=== PATIENT | male | born 1965 | race Caucasian/White ===

== ENCOUNTER 2018-02-09 00:10 | Emergency (ER) | payer MEDICAID ==
[~2018-02-09] VITALS: Ht 162.6 cm; Wt 56.8 kg
[2018-02-09 00:10] VITALS: BP 146/89
[2018-02-09] MEDS ORDERED: LIDOcaine 1% (10mg/ml)w/preservative injection 20ml MDV IJ ONE (00:20)
[2018-02-09] MEDS ORDERED: TETanus/Pertussis (Acell)/Diphther VAC/PF (Tdap-Adult) 0.5ml syringe IMVAC ONE (00:20)
[2018-02-09] MEDS ORDERED: LIDOcaine 1%/PF 5ML 10 MG/ML VIAL IJ ONE (00:35)
[2018-02-09] MEDS ORDERED: bacitracin 15gm ointment TP ONE (02:05)
[2018-02-09] MEDS ORDERED: CEPH-572 PO (02:14)
== END 2018-02-09 02:22 | disposition home or self-care (01) ==
LOC: ER 00:11
DX: S71.111A Laceration without foreign body, right thigh, initial encounter (principal); S71.151A Open bite, right thigh, initial encounter; F10.129 Alcohol abuse with intoxication, unspecified; F12.90 Cannabis use, unspecified, uncomplicated; Z72.0 Tobacco use; W54.0XXA Bitten by dog, initial encounter; Y93.89 Activity, other specified; Y92.89 Other specified places as the place of occurrence of the external cause; Y99.8 Other external cause status; Y90.9 Presence of alcohol in blood, level not specified
CPT/HCPCS: 12032; 90471; 90715; 99284; J2001

== ENCOUNTER 2018-02-11 15:31 | Emergency (ER) | payer MEDICAID ==
[~2018-02-11] VITALS: Ht 165.1 cm; Wt 56.8 kg
[~2018-02-11 15:31] MED LIST: CEPH-572 PO
[2018-02-11 15:43] VITALS: BP 152/80
== END 2018-02-11 16:27 | disposition home or self-care (01) ==
LOC: ER 15:31
DX: S71.111D Laceration without foreign body, right thigh, subsequent encounter (principal); S71.151D Open bite, right thigh, subsequent encounter; D17.0 Benign lipomatous neoplasm of skin and subcutaneous tissue of head, face and neck; F12.90 Cannabis use, unspecified, uncomplicated; W54.0XXD Bitten by dog, subsequent encounter
CPT/HCPCS: 99281; 99283

== ENCOUNTER 2018-03-30 12:42 | Emergency (ER) | payer MEDICAID ==
[~2018-03-30] VITALS: Ht 165.1 cm; Wt 41.0 kg
[2018-03-30 12:52] VITALS: BP 138/80
[2018-03-30] MEDS ORDERED: TRAM50TA2 PO (14:10)
[2018-03-30] MEDS ORDERED: SULF1TAB49 PO (14:10)
[2018-03-30] MEDS ORDERED: CEPH250T PO (14:10)
== END 2018-03-30 14:29 | disposition home or self-care (01) ==
LOC: ER 12:42
DX: S71.111D Laceration without foreign body, right thigh, subsequent encounter (principal); S71.151D Open bite, right thigh, subsequent encounter; F12.90 Cannabis use, unspecified, uncomplicated; W54.0XXD Bitten by dog, subsequent encounter
CPT/HCPCS: 87070; 87077; 87186; 99283

== ENCOUNTER 2018-04-10 13:47 | Emergency (ER) | payer MEDICAID ==
[~2018-04-10] VITALS: Ht 315 cm; Wt 56.8 kg
[~2018-04-10 13:47] MED LIST changes: -CEPH-572 PO; +CEPH250T PO; +SULF1TAB49 PO; +TRAM50TA2 PO
[2018-04-10] MEDS ORDERED: FLUO20CA39 PO (14:30)
[2018-04-10] MEDS ORDERED: BUSP10TA11 PO (14:34)
[2018-04-10] MEDS ORDERED: LURA20TA PO (14:37)
[2018-04-10 15:41] LABS: BASOPHILS # (AUTO) 0.1 X10'3 (0-0.2); BASOPHILS % (AUTO) 0.6 % (0-1); EOSINOPHILS % (AUTO) 0.4 % (0-6); HEMATOCRIT 39.8 % (42.0-52.0); HEMOGLOBIN 13.4 g/dl (14.0-17.9); LYMPHOCYTES # (AUTO) 1.1 X10'3 (1.1-4.8); LYMPHOCYTES % (AUTO) 11.7 % (21-51); MEAN CORPUSCULAR HEMOGLOBIN 34.4 PG (27.0-31.0); MEAN CORPUSCULAR HGB CONC 33.7 % (33.0-36.5); MEAN CORPUSCULAR VOLUME 102.3 FL (78-98); MEAN PLATELET VOLUME 6.1 FL (7.4-10.4); MONOCYTES # (AUTO) 0.4 X10'3 (0-0.9); MONOCYTES % (AUTO) 4.4 % (2-12); NEUTROPHILS # (AUTO) 7.8 X10'3 (1.8-7.7); NEUTROPHILS % (AUTO) 82.9 % (42-75); PLATELET COUNT 413 X10'3 (140-440); RED BLOOD COUNT 3.89 X10'6 (4.70-6.10); RED CELL DISTRIBUTION WIDTH 14.2 % (11.5-14.5); WHITE BLOOD COUNT 9.4 X10'3 (4.5-11.0)
[2018-04-10 16:05] LABS: ALANINE AMINOTRANSFERASE 58 U/L (12-78); ALBUMIN 3.9 G/DL (3.4-5.0); ALBUMIN/GLOBULIN RATIO 1.2 (1.1-1.5); ALKALINE PHOSPHATASE 62 IU/L (46-116); ANION GAP 13 (8-16); ASPARTATE AMINO TRANSFERASE 76 U/L (10-37); BILIRUBIN,TOTAL 1.1 MG/DL (0.1-1.0); BLOOD UREA NITROGEN 12 MG/DL (7-18); CALCIUM 9.3 MG/DL (8.5-10.1); CHLORIDE 96 MMOL/L (99-107); CREATININE 0.75 MG/DL (0.60-1.10); ETHANOL < 0.010 GM/DL (0.0-0.010); GLUCOSE 109 MG/DL (70-104); POTASSIUM 3.8 MMOL/L (3.5-5.1); SODIUM 135 MMOL/L (135-145); TOTAL CARBON DIOXIDE 25.6 MMOL/L (24-32); TOTAL PROTEIN 7.2 G/DL (6.4-8.2); eGFR > 90 ML/MIN
[2018-04-10 16:37] LABS: CLARITY,URINE CLEAR (Clear); COLOR,URINE YELLOW (Yellow); GLUCOSE, URINE NEGATIVE (Neg); KETONES,URINE 15 mg/dl (Neg); LEUKOCYTE ESTERASE ,URINE NEGATIVE (Neg); NITRITES, URINE NEGATIVE (Neg); OCCULT BLOOD,URINE NEGATIVE (Neg); PROTEIN,URINE NEGATIVE (Neg)
[2018-04-10 16:40] LABS: UA COLLECTION TYPE CLN CATCH MIDSTREAM
[2018-04-10 16:52] LABS: URINE AMPHETAMINE SCREEN POSITIVE (Neg); URINE BARBITUATE SCREEN NEGATIVE (Neg); URINE BENZODIAZEPINES SCREEN NEGATIVE (Neg); URINE CANNABINOID SCREEN POSITIVE (Neg); URINE COCAINE SCREEN NEGATIVE (Neg); URINE METHADONE SCREEN NEGATIVE (Neg); URINE OPIATE SCREEN NEGATIVE (Neg); URINE PHENCYCLIDINE SCREEN NEGATIVE (Neg)
[2018-04-10] MEDS: busPIRone 15mg tablet PO SCH (20:01)
[2018-04-11] MEDS: busPIRone 15mg tablet PO SCH ×2 (08:39→19:55)
[2018-04-11] MEDS: lurasidone 20mg tablet PO SCH (08:39)
[2018-04-11] MEDS: FLUoxetine 20mg capsule PO SCH (08:39)
[2018-04-11] MEDS ORDERED: diphenhydrAMINE 25mg capsule PO ONE (19:05)
[2018-04-12] MEDS: busPIRone 15mg tablet PO SCH (08:23)
[2018-04-12] MEDS: FLUoxetine 20mg capsule PO SCH (08:23)
[2018-04-12] MEDS: lurasidone 20mg tablet PO SCH (08:23)
[2018-04-12] MEDS: busPIRone 5mg tablet PO SCH (20:34)
[2018-04-12] MEDS ORDERED: diphenhydrAMINE 25mg capsule PO ONE (21:00)
[2018-04-12] MEDS ORDERED: diphenhydrAMINE 25mg capsule PO PRN (23:50)
[2018-04-13] MEDS: FLUoxetine 20mg capsule PO SCH (08:07)
[2018-04-13] MEDS: lurasidone 20mg tablet PO SCH (08:07)
[2018-04-13] MEDS: busPIRone 5mg tablet PO SCH (08:07)
[2018-04-13 15:35] VITALS: BP 156/94
== END 2018-04-13 15:46 ==
LOC: ER 13:48
DX: F32.9 Major depressive disorder, single episode, unspecified (principal); F79 Unspecified intellectual disabilities; R11.2 Nausea with vomiting, unspecified; E63.9 Nutritional deficiency, unspecified; F41.9 Anxiety disorder, unspecified; F12.90 Cannabis use, unspecified, uncomplicated; Z79.899 Other long term (current) drug therapy; Z59.0 Homelessness; Z56.0 Unemployment, unspecified
CPT/HCPCS: 36415; 80053; 80305; 80320; 81003; 84443; 85025; 99285; Q0163

== ENCOUNTER → 2018-04-29 | Emergency (ER) | payer MEDICAID ==
[~2018-04-29] VITALS: Ht 162.6 cm; Wt 54.5 kg
[~2018-04-29] MED LIST changes: +BUSP10TA11 PO; +FLUO20CA39 PO; +LURA20TA PO
[2018-04-29 20:18] VITALS: BP 97/73
== END | disposition home or self-care (01) ==
LOC: ER 19:32
DX: F99 Mental disorder, not otherwise specified (principal); I10 Essential (primary) hypertension; F41.9 Anxiety disorder, unspecified; F32.9 Major depressive disorder, single episode, unspecified; F17.200 Nicotine dependence, unspecified, uncomplicated; F12.90 Cannabis use, unspecified, uncomplicated; Z79.899 Other long term (current) drug therapy; Z56.0 Unemployment, unspecified
CPT/HCPCS: 99284

== ENCOUNTER 2018-05-09 09:28 | Emergency (ER) | payer MEDICAID ==
[~2018-05-09] VITALS: Ht 165.1 cm; Wt 55.9 kg
[~2018-05-09 09:28] MED LIST changes: -SULF1TAB49 PO; -TRAM50TA2 PO
[2018-05-09 09:33] VITALS: BP 160/90
[2018-05-09] MEDS ORDERED: SULF1TAB49 PO (09:52)
--- NOTE | 2018-05-09 10:04 | NUR ---
PT SEEN AND DC'D BY PROVIDER
== END 2018-05-09 10:04 | disposition home or self-care (01) ==
LOC: ER 09:28
DX: L03.012 Cellulitis of left finger (principal); L72.3 Sebaceous cyst; I10 Essential (primary) hypertension; F12.90 Cannabis use, unspecified, uncomplicated; Z79.899 Other long term (current) drug therapy; Z56.0 Unemployment, unspecified
CPT/HCPCS: 99283

== ENCOUNTER 2018-05-17 08:27 | Emergency (ER) | payer MEDICAID ==
[~2018-05-17] VITALS: Ht 165.1 cm; Wt 61.4 kg
[~2018-05-17 08:27] MED LIST changes: +SULF1TAB49 PO
[2018-05-17 08:32] VITALS: BP 146/88
[2018-05-17] MEDS ORDERED: SULF1TAB49 PO (09:05)
== END 2018-05-17 09:36 | disposition home or self-care (01) ==
LOC: ER 08:27
DX: L03.012 Cellulitis of left finger (principal); I10 Essential (primary) hypertension; F12.90 Cannabis use, unspecified, uncomplicated; Z79.899 Other long term (current) drug therapy; Z56.0 Unemployment, unspecified
CPT/HCPCS: 10060; 99283

== ENCOUNTER 2018-07-18 20:33 | Emergency (ER) | payer MEDICAID ==
[~2018-07-18] VITALS: Ht 167.6 cm; Wt 50.0 kg
[~2018-07-18 20:33] MED LIST changes: -SULF1TAB49 PO
--- NOTE | 2018-07-18 21:56 | NUR ---
PATIENT STATES INCONTINET OF URINE 2-3 TIMES OUT OF THE WEEK
--- NOTE | 2018-07-18 21:59 | NUR ---
"GIRLFRIEND " WAS HOSPITALIZED AFTERWARD
--- NOTE | 2018-07-18 21:59 | NUR ---
PATIENT STATES THAT HE USUALLY DRINKS TWO 40 OZ BEERS A DAY OR A PINT OF VODKA. PATIENT STATES THAT HE DRANK A PINT OF VODKA TODAY PATIENT HERE DUE TO INCONTINENCE OF URINE AND OCASSIONALLY
--- NOTE | 2018-07-18 22:02 | NUR ---
PATIENT WAS SEEING A THERAPIST AT [facility]
[2018-07-18] MEDS ORDERED: dexamethasone sod phosphate 10mg/ml inj PO STA (22:17)
[2018-07-18] MEDS ORDERED: CLIN150C2 PO (22:17)
[2018-07-18 23:21] VITALS: BP 132/65
== END 2018-07-18 23:29 | disposition home or self-care (01) ==
LOC: ER 20:33
DX: J02.9 Acute pharyngitis, unspecified (principal); I10 Essential (primary) hypertension; F41.9 Anxiety disorder, unspecified; F12.10 Cannabis abuse, uncomplicated; Z56.0 Unemployment, unspecified
CPT/HCPCS: 99283; J1100

== ENCOUNTER 2018-08-01 05:22 | Emergency (ER) | payer MEDICAID ==
[~2018-08-01] VITALS: Ht 165.1 cm; Wt 50.0 kg
[~2018-08-01 05:22] MED LIST changes: +CLIN150C2 PO
[2018-08-01 05:24] VITALS: BP 144/81
== END 2018-08-01 06:25 | disposition home or self-care (01) ==
LOC: ER 05:23
DX: J39.2 Other diseases of pharynx (principal); R05 Cough; I10 Essential (primary) hypertension; F17.200 Nicotine dependence, unspecified, uncomplicated; F12.90 Cannabis use, unspecified, uncomplicated; Z56.0 Unemployment, unspecified; Z59.0 Homelessness; Z79.899 Other long term (current) drug therapy
CPT/HCPCS: 99281